=== PATIENT | male | born 1935 | race Caucasian/White ===

== ENCOUNTER 2017-07-16 20:22 | Emergency (ER) | payer MEDICARE, MEDICAID ==
[2017-07-16 20:38] VITALS: BP 159/71
[2017-07-16] MEDS ORDERED: GI Cocktail Oral Solution 30 ML PO ONE (20:41)
--- NOTE | 2017-07-16 20:43 | EDM.PDOC ---
ED HPI GENERAL MEDICAL PROBLEM - General Chief Complaint: Abdominal Pain Stated Complaint: STOMACH PAIN [id number] Time Seen by Provider: 07/16/17 20:40 Source of Information: Reports: Patient History Limitations: Reports: No Limitations - History of Present Illness INITIAL COMMENTS - FREE TEXT/NARRATIVE: 82 yo white male c/o epigastric pain X 2 days w/ diarrhea. PMHx. Heartburn, CAHD and Aortic Aneurysm Onset Date: 07/15/17 Onset Time: 12:00 Duration: Day(s): Location: Reports: Abdomen Quality: Reports: Burning, Same as Previous Episode Severity: Moderate Improves with: Reports: None Worsens with: Reports: None Context: Reports: Other (PMHx. Heartburn) Associated Symptoms: Reports: No Other Symptoms Middle Epigastric Pain Score (Numeric/FACES): 5 - Related Data Allergies Allergy/AdvReac Type Severity Reaction Status Date / Time celecoxib Allergy Difficulty Verified 07/16/17 20:38 Swallowing Home Meds: Home Meds Acetaminophen [Tylenol Extra Strength] 1 tab PO Q6HR PRN 04/25/14 [History] Aspirin [Adult Low Dose Aspirin EC] 1 tab PO DAILY 04/25/14 [History] Isosorbide Mononitrate [Isosorbide Mononitrate ER] 1 tab PO DAILY 04/25/14 [ History] Lisinopril [Prinivil] 2 tab PO DAILY 04/25/14 [History] Metoprolol Succinate [Toprol XL 100mg] 1 tab PO DAILY 04/25/14 [History] Multivitamin [Multivitamins] 1 tab PO DAILY 04/25/14 [History] Nitroglycerin [Nitrostat] 0.4 mg SL ASDIRECTED PRN 04/25/14 [History] Rosuvastatin [Crestor] 1 tab PO BEDTIME 04/25/14 [History] Clopidogrel Bisulfate [Clopidogrel] 75 mg PO DAILY 12/05/14 [History] Esomeprazole Magnesium [Nexium] 40 mg PO DAILY 12/05/14 [History] Tamsulosin HCl [Flomax] 0.4 mg PO DAILY 04/14/16 [History] Ferrous Fumarate [Ferrocite] 324 mg PO DAILY 08/05/16 [History] Finasteride 5 mg PO DAILY 08/05/16 [History] Sennosides/Docusate Sodium [Senna-Docusate Sodium] 2 tab PO BID 08/05/16 [ History] oxyCODONE HCl/Acetaminophen [Endocet 5-325 Tablet] 1 tab PO Q6H PRN 08/05/16 [ History] traMADol [Ultram] 1 tab PO Q4H PRN 08/05/16 [History] Past Medical History HEENT History: Reports: Impaired Vision, Other (See Below) Other HEENT History: wear glasses Cardiovascular History: Reports: CAD, High Cholesterol, Hypertension, [place], Stents Respiratory History: Reports: None Gastrointestinal History: Reports: Diverticulosis, Other (See Below) Other Gastrointestinal History: AAA Genitourinary History: Reports: BPH Musculoskeletal History: Reports: None Neurological History: Reports: None Psychiatric History: Reports: None Endocrine/Metabolic History: Reports: None Hematologic History: Reports: None Immunologic History: Reports: None Oncologic (Cancer) History: Reports: None Dermatologic History: Reports: None - Past Surgical History Cardiovascular Surgical History: Reports: Coronary Artery Bypass, Coronary Artery Stent Musculoskeletal Surgical History: Reports: Hip Replacement Social & Family History - Family History Cardiac: Reports: CAD, Hypertension, Stent - Tobacco Use Smoking Status *Q: Former Smoker Years of Tobacco use: 30 Used Tobacco, but Quit: No Second Hand Smoke Exposure: No - Caffeine Use Caffeine Use: Reports: Coffee, Soda - Alcohol Use Days Per Week of Alcohol Use: 7 Number of Drinks Per Day: 5 Total Drinks Per Week: 35 Date of Last Drink: 07/15/17 - Recreational Drug Use Recreational Drug Use: No - Living Situation & Occupation Living situation: Reports: , with Spouse Occupation: Retired ED ROS GENERAL - Review of Systems Review Of Systems: See Below Constitutional: Reports: No Symptoms HEENT: Reports: No Symptoms Respiratory: Reports: No Symptoms Cardiovascular: Reports: No Symptoms Endocrine: Reports: No Symptoms GI/Abdominal: Reports: Abdominal Pain (epigastric ) : Reports: No Symptoms Musculoskeletal: Reports: No Symptoms Skin: Reports: No Symptoms Neurological: Reports: No Symptoms Psychiatric: Reports: No Symptoms Hematologic/Lymphatic: Reports: No Symptoms Immunologic: Reports: No Symptoms ED EXAM, GENERAL - Physical Exam Exam: See Below Exam Limited By: No Limitations General Appearance: Alert, No Apparent Distress, Obese Eye Exam: Bilateral Eye: EOMI, PERRL Ears: Normal External Exam Nose: Normal Inspection Throat/Mouth: Normal Inspection Head: Atraumatic Neck: Normal Inspection Respiratory/Chest: No Respiratory Distress, Lungs Clear Cardiovascular: Normal Peripheral Pulses, Regular Rate, Rhythm, No JVD, No Murmur, No Rub Peripheral Pulses: 2+: Brachial (L), Brachial (R), Radial (L), Radial (R) GI/Abdominal: Normal Bowel Sounds, No Organomegaly, Tender (epigastric tenderness) Back Exam: Normal Inspection Extremities: Normal Inspection, Normal Range of Motion Neurological: Alert, Oriented, CN II-XII Intact Psychiatric: Normal Affect, Normal Mood Skin Exam: Warm, Dry, Intact, Normal Color Lymphatic: No Adenopathy Course - Vital Signs Last Recorded V/S: Last Vital Signs Temp 36.4 C 07/16/17 20:24 Pulse 90 07/16/17 20:24 Resp 15 07/16/17 20:24 BP 159/71 H 07/16/17 20:24 Pulse Ox 98 07/16/17 20:24 - Orders/Labs/Meds Orders: Active Orders 24 hr Category Date Time Status EKG Documentation Completion [RC] STAT Care 07/16/17 20:41 Active URINALYSIS W/MICROSCOPIC [UA W/MICROSCOPIC] [URIN] Stat Lab 07/16/17 20:43 Uncollected Sodium Chloride 0.9% [Normal Saline] 500 ml Med 07/16/17 20:45 Active IV ASDIRECTED Medication Orders Sodium Chloride (Normal Saline) 500 mls @ 100 mls/hr IV ASDIRECTED RODRIGO Last Admin: 07/16/17 21:04 Dose: 100 mls/hr Labs: Laboratory Tests 07/16/17 07/16/17 07/16/17 Range/Units 20:45 20:45 20:45 WBC 8.4 (5.0-10.0) 10^3/uL RBC 3.59 L (4.6-6.2) 10^6/uL Hgb 11.2 L (14.0-18.0) g/dL Hct 34.5 L (40.0-54.0) % MCV 96.1 (80-100) fL MCH 31.2 (27.0-34.0) pg MCHC 32.5 L (33.0-35.0) g/dL Plt Count 205 (150-450) 10^3/uL Neut % (Auto) 63.2 (42.2-75.2) % Lymph % (Auto) 25.1 (20.5-50.1) % [place] % (Auto) 9.7 H (2-8) % Eos % (Auto) 1.8 (1.0-3.0) % Baso % (Auto) 0.2 (0.0-1.0) % D-Dimer, Quantitative 839 H (0-400) ng/mL Sodium 139 (135-145) mmol/L Potassium 4.7 (3.6-5.0) mmol/L Chloride 103 (101-111) mmol/L Carbon Dioxide 25.0 (21.0-31.0) mmol/L Anion Gap 15.7 BUN 30 H (7-18) mg/dL Creatinine 1.6 H (0.6-1.3) mg/dL Est Cr Clr Drug Dosing 33.28 mL/min Estimated GFR (MDRD) 42 BUN/Creatinine Ratio 18.75 Glucose 106 H (74-105) mg/dL Calcium 9.5 (8.4-10.2) mg/dl Total Bilirubin 0.5 (0.2-1.0) mg/dL AST 25 (10-42) IU/L ALT 20 (10-60) IU/L Alkaline Phosphatase 50 (42-121) IU/L Troponin I 0.05 H* (0.00-0.02) ng/ml Total Protein 7.3 (6.7-8.2) g/dl Albumin 4.0 (3.2-5.5) g/dl Globulin 3.3 Albumin/Globulin Ratio 1.21 Meds: Medications Generic Name Dose Route Start Last Admin Trade Name Freq PRN Reason Stop Dose Admin Sodium Chloride 500 mls @ 100 mls/hr 07/16/17 20:45 07/16/17 21:04 Normal Saline IV 100 mls/hr ASDIRECTED RODRIGO Administration Discontinued Medications Generic Name Dose Route Start Last Admin Trade Name Freq PRN Reason Stop Dose Admin Al Hydroxide/Mg Hydroxide 30 ml 07/16/17 20:41 07/16/17 21:03 Gi Cocktail PO 07/16/17 20:42 30 ml ONETIME ONE Administration Aspirin 324 mg 07/16/17 21:22 Aspirin PO 07/16/17 21:23 ONETIME ONE Morphine Sulfate 2 mg 07/16/17 21:21 Morphine IVPUSH 07/16/17 21:22 ONETIME ONE Departure - Departure Time of Disposition: 21:30 Disposition: DC/Tfer to Acute Hospital 02 Condition: Fair Clinical Impression: NSTEMI (non-ST elevated myocardial infarction) - Discharge Information Forms: ED Department Discharge, Interfacility Transfer KALYAN - My Orders Last 24 Hours: My Active Orders 07/16/17 20:41 EKG Documentation Completion [RC] STAT 07/16/17 20:43 URINALYSIS W/MICROSCOPIC [UA W/MICROSCOPIC] [URIN] Stat 07/16/17 20:45 Sodium Chloride 0.9% [Normal Saline] 500 ml IV ASDIRECTED - Assessment/Plan Last 24 Hours: My Active Orders 07/16/17 20:41 EKG Documentation Completion [RC] STAT 07/16/17 20:43 URINALYSIS W/MICROSCOPIC [UA W/MICROSCOPIC] [URIN] Stat 07/16/17 20:45 Sodium Chloride 0.9% [Normal Saline] 500 ml IV ASDIRECTED
[2017-07-16] MEDS ORDERED: Sodium Chloride 0.9% 500 ML IV SCH (20:45)
[2017-07-16] MEDS ORDERED: Morphine 2 MG/ML Syringe IVPUSH ONE (21:21)
[2017-07-16] MEDS ORDERED: Aspirin 81 MG Tab.Chew PO ONE (21:22)
--- NOTE | 2017-07-20 08:29 | EKG ---
07/16/2017- ANANYA SIMPSON - Twelve-lead EKG shows normal sinus rhythm with borderline left axis deviation. Nonspecific ST-T wave changes noted on lead V2, V3, and also 3. No significant ST elevation or ST depression noted on this 12-lead EKG. [facility] /[id number]
== END 2017-07-16 21:59 ==
LOC: DL.ED 20:22
DX: I21.4 Non-ST elevation (NSTEMI) myocardial infarction (principal); N28.9 Disorder of kidney and ureter, unspecified; R79.89 Other specified abnormal findings of blood chemistry; I10 Essential (primary) hypertension; I25.10 Atherosclerotic heart disease of native coronary artery without angina pectoris; Z79.82 Long term (current) use of aspirin; Z79.899 Other long term (current) drug therapy; Z87.891 Personal history of nicotine dependence; Z88.8 Allergy status to other drugs, medicaments and biological substances
CPT/HCPCS: 36415; 71010; 80053; 84484; 85025; 85379; 93005; 93010; 96361; 96374; 99285; A9270; J2270; J7040

== ENCOUNTER 2017-09-07 18:12 | Emergency (ER) | payer MEDICARE, MEDICAID ==
[2017-09-07] MEDS ORDERED: Sodium Chloride 0.9% 10 ML Syringe FLUSH PRN (18:23)
--- NOTE | 2017-09-07 18:45 | EDM.PDOC ---
Scribed by Kayla Botello 09/07/17 0075 for Abel Quintana MD ED HPI GENERAL MEDICAL PROBLEM - General Source of Information: Reports: Patient, EMS, EMS Notes Reviewed, RN, RN Notes Reviewed History Limitations: Reports: No Limitations - History of Present Illness Onset: Today Quality: Reports: Ache Severity: Moderate Improves with: Reports: None Worsens with: Reports: None Associated Symptoms: Reports: No Other Symptoms <Abel Quintana - Last Filed: 09/07/17 18:44> <Kong Almaraz - Last Filed: 09/07/17 19:48> - General Chief Complaint: Syncope Stated Complaint: BY AMBULANCE Time Seen by Provider: 09/07/17 18:16 - History of Present Illness INITIAL COMMENTS - FREE TEXT/NARRATIVE: Patient arrives from home by ambulance with complaints of syncope. Patient states he felt well and normal all day and had just eaten dinner when he experienced sudden onset of spinning dizziness,then he forcefully vomited up his dinner and briefly fainted for a second or two. Patient states that as soon as he "came too" he felt completely normal again. Denies chestpain, shortness of breath, headache, nausea, fever, chills, cough, abdominal pain, or palpitations. Admits that when he became dizzy his vision briefly blurred. ( Kayla Botello) Patient arrives from home by ambulance with complaints of syncope. Patient states he felt well and normal all day and had just eaten dinner when he experienced sudden onset of spinning dizziness,then he forcefully vomited up his dinner and briefly fainted for a second or two. Patient states that as soon as he "came too" he felt completely normal again. Denies chestpain, shortness of breath, headache, nausea, fever, chills, cough, abdominal pain, or palpitations. Admits that when he became dizzy his vision briefly blurred. Pt's states he had slurred speech and couldn't get his words out for a few minutes just before the episode. (Abel Quintana) - Related Data Allergies Allergy/AdvReac Type Severity Reaction Status Date / Time celecoxib Allergy Difficulty Verified 09/07/17 18:48 Swallowing Home Meds: Home Meds Acetaminophen [Tylenol Extra Strength] 1 tab PO Q6HR PRN 04/25/14 [History] Aspirin [Adult Low Dose Aspirin EC] 1 tab PO DAILY 04/25/14 [History] Isosorbide Mononitrate [Isosorbide Mononitrate ER] 1 tab PO DAILY 04/25/14 [ History] Lisinopril [Prinivil] 2 tab PO DAILY 04/25/14 [History] Metoprolol Succinate [Toprol XL 100mg] 1 tab PO DAILY 04/25/14 [History] Multivitamin [Multivitamins] 1 tab PO DAILY 04/25/14 [History] Nitroglycerin [Nitrostat] 0.4 mg SL ASDIRECTED PRN 04/25/14 [History] Rosuvastatin [Crestor] 1 tab PO BEDTIME 04/25/14 [History] Clopidogrel Bisulfate [Clopidogrel] 75 mg PO DAILY 12/05/14 [History] Esomeprazole Magnesium [Nexium] 40 mg PO DAILY 12/05/14 [History] Tamsulosin HCl [Flomax] 0.4 mg PO DAILY 04/14/16 [History] Ferrous Fumarate [Ferrocite] 324 mg PO DAILY 08/05/16 [History] Finasteride 5 mg PO DAILY 08/05/16 [History] Sennosides/Docusate Sodium [Senna-Docusate Sodium] 2 tab PO BID 08/05/16 [ History] oxyCODONE HCl/Acetaminophen [Endocet 5-325 Tablet] 1 tab PO Q6H PRN 08/05/16 [ History] traMADol [Ultram] 1 tab PO Q4H PRN 08/05/16 [History] Past Medical History HEENT History: Reports: Impaired Vision, Other (See Below) Other HEENT History: wear glasses Cardiovascular History: Reports: CAD, High Cholesterol, Hypertension, [place], Stents Respiratory History: Reports: None Gastrointestinal History: Reports: Diverticulosis, Other (See Below) Other Gastrointestinal History: AAA Genitourinary History: Reports: BPH Musculoskeletal History: Reports: None Neurological History: Reports: None Psychiatric History: Reports: None Endocrine/Metabolic History: Reports: None Hematologic History: Reports: None Immunologic History: Reports: None Oncologic (Cancer) History: Reports: None Dermatologic History: Reports: None - Past Surgical History Cardiovascular Surgical History: Reports: Coronary Artery Bypass, Coronary Artery Stent Musculoskeletal Surgical History: Reports: Hip Replacement <Abel Quintana - Last Filed: 09/07/17 18:44> Social & Family History - Family History Cardiac: Reports: CAD, Hypertension, Stent - Tobacco Use Smoking Status *Q: Former Smoker Years of Tobacco use: 30 Used Tobacco, but Quit: No Second Hand Smoke Exposure: No - Caffeine Use Caffeine Use: Reports: Coffee, Soda - Alcohol Use Days Per Week of Alcohol Use: 7 Number of Drinks Per Day: 5 Total Drinks Per Week: 35 - Recreational Drug Use Recreational Drug Use: No - Living Situation & Occupation Living situation: Reports: , with Spouse Occupation: Retired <Abel Quintana - Last Filed: 09/07/17 18:44> ED ROS GENERAL - Review of Systems Review Of Systems: ROS reveals no pertinent complaints other than HPI. <Abel Quintana - Last Filed: 09/07/17 18:44> - Physical Exam Exam: See Below Exam Limited By: No Limitations General Appearance: Alert, WD/WN, No Apparent Distress Eye Exam: Bilateral Eye: Other (reproducible lateral gaze nystagmus.) Head Exam: Atraumatic, Normocephalic Neck: Normal Inspection, Supple, Non-Tender, Full Range of Motion Respiratory/Chest: No Respiratory Distress, Lungs Clear, Normal Breath Sounds, No Accessory Muscle Use, Chest Non-Tender Cardiovascular: Normal Peripheral Pulses, Regular Rate, Rhythm, No Edema, No Gallop, No JVD, No Murmur, No Rub GI/Abdominal: Normal Bowel Sounds, Soft, Non-Tender, No Organomegaly, No Distention, No Abnormal Bruit, No Mass (Male) Exam: Deferred Rectal (Males) Exam: Deferred Neuro Exam (Abbreviated): Alert, Oriented, CN II-XII Intact, Normal Cognition, Normal Gait, Normal Reflexes, No Motor/Sensory Deficits Back Exam: Normal Inspection, Full Range of Motion, NT Extremities: Normal Inspection, Normal Range of Motion, Non-Tender, No Pedal Edema, Normal Capillary Refill Psychiatric: Normal Affect, Normal Mood Skin Exam: Warm, Dry, Intact, Normal Color, No Rash <Abel Quintana - Last Filed: 09/07/17 18:44> EKG INTERPRETATION EKG Date: 09/07/17 Time: 18:22 Rhythm: Other (sinus rhythm) Rate (Beats/Min): 67 [place]: Normal P-Wave: Present QRS: Other (old inferior Q waves) ST-T: Normal QT: Normal <Abel Quintana - Last Filed: 09/07/17 18:44> Course <Abel Quintana Arthur - Last Filed: 09/07/17 18:44> <Kong Almaraz - Last Filed: 09/07/17 19:48> - Vital Signs Last Recorded V/S: Last Vital Signs Temp 35.7 C 09/07/17 18:15 Pulse 67 09/07/17 18:15 Resp 14 09/07/17 18:15 BP 136/62 09/07/17 18:15 Pulse Ox 96 09/07/17 18:15 Orthostatic Blood Pressure [ 105/56 Standing] Orthostatic Blood Pressure [ 120/57 Sitting] Orthostatic Blood Pressure [ 117/55 Supine] - Orders/Labs/Meds Orders: Active Orders 24 hr Category Date Time Status Blood Glucose Check, Bedside [RC] ONETIME Care 09/07/17 18:23 Active EKG 12 Lead [EKG Documentation Completion] [RC] STAT Care 09/07/17 18:22 Active Orthostatic Vital Signs [RC] ASDIRECTED Care 09/07/17 18:22 Active Peripheral IV Care [RC] . DIRECTED Care 09/07/17 18:23 Active CK W CKMB [CHEM] Stat Lab 09/07/17 18:40 Results DRUG SCREEN URINE BIORAD [URCHEM] Stat Lab 09/07/17 19:08 Received INR,PT,PROTHROMBIN TIME [COAG] Stat Lab 09/07/17 18:40 Received PTT,PARTIAL THROMBOPLSTIN TIME [COAG] Stat Lab 09/07/17 18:40 Received UA W/MICROSCOPIC [URIN] Stat Lab 09/07/17 19:08 Received Sodium Chloride 0.9% [Saline Flush] Med 09/07/17 18:23 Active 10 ml FLUSH ASDIRECTED PRN Peripheral IV Insertion Adult [OM.PC] Stat Oth 09/07/17 18:22 Ordered Medication Orders Sodium Chloride (Saline Flush) 10 ml FLUSH ASDIRECTED PRN PRN Reason: Keep Vein Open Labs: Laboratory Tests 09/07/17 09/07/17 09/07/17 Range/Units 18:40 18:40 18:40 WBC 14.4 H (5.0-10.0) 10^3/uL RBC 3.96 L (4.6-6.2) 10^6/uL Hgb 12.3 L (14.0-18.0) g/dL Hct 38.1 L (40.0-54.0) % MCV 96.2 (80-100) fL MCH 31.1 (27.0-34.0) pg MCHC 32.3 L (33.0-35.0) g/dL Plt Count 229 (150-450) 10^3/uL Neut % (Auto) 72.0 (42.2-75.2) % Lymph % (Auto) 19.0 L (20.5-50.1) % [place]flower % (Auto) 7.4 (2-8) % Eos % (Auto) 1.5 (1.0-3.0) % Baso % (Auto) 0.1 (0.0-1.0) % D-Dimer, Quantitative 1040 H (0-400) ng/mL Sodium 141 (135-145) mmol/L Potassium 4.3 (3.6-5.0) mmol/L Chloride 106 (101-111) mmol/L Carbon Dioxide 23.0 (21.0-31.0) mmol/L Anion Gap 16.3 BUN 36 H (7-18) mg/dL Creatinine 1.4 H (0.6-1.3) mg/dL Est Cr Clr Drug Dosing TNP Estimated GFR (MDRD) 49 BUN/Creatinine Ratio 25.71 Glucose 126 H (74-105) mg/dL Calcium 8.9 (8.4-10.2) mg/dl Magnesium 2.1 (1.8-2.5) mg/dL Total Bilirubin 0.5 (0.2-1.0) mg/dL AST 27 (10-42) IU/L ALT 20 (10-60) IU/L Alkaline Phosphatase 46 (42-121) IU/L CK-MB (CK-2) (0.4-4.7) ng/mL Troponin I 0.03 H* (0.00-0.02) ng/ml B-Natriuretic Peptide 137 H (0-100) pg/ml Total Protein 7.8 (6.7-8.2) g/dl Albumin 4.5 (3.2-5.5) g/dl Globulin 3.3 Albumin/Globulin Ratio 1.36 Amylase 107 H (28-100) U/L Lipase 31 (22-51) U/L Ethyl Alcohol < 5 mg/dL 09/07/17 Range/Units 18:40 WBC (5.0-10.0) 10^3/uL RBC (4.6-6.2) 10^6/uL Hgb (14.0-18.0) g/dL Hct (40.0-54.0) % MCV (80-100) fL MCH (27.0-34.0) pg MCHC (33.0-35.0) g/dL Plt Count (150-450) 10^3/uL Neut % (Auto) (42.2-75.2) % Lymph % (Auto) (20.5-50.1) % Sunflower % (Auto) (2-8) % Eos % (Auto) (1.0-3.0) % Baso % (Auto) (0.0-1.0) % D-Dimer, Quantitative (0-400) ng/mL Sodium (135-145) mmol/L Potassium (3.6-5.0) mmol/L Chloride (101-111) mmol/L Carbon Dioxide (21.0-31.0) mmol/L Anion Gap BUN (7-18) mg/dL Creatinine (0.6-1.3) mg/dL Est Cr Clr Drug Dosing Estimated GFR (MDRD) BUN/Creatinine Ratio Glucose (74-105) mg/dL Calcium (8.4-10.2) mg/dl Magnesium (1.8-2.5) mg/dL Total Bilirubin (0.2-1.0) mg/dL AST (10-42) IU/L ALT (10-60) IU/L Alkaline Phosphatase (42-121) IU/L CK-MB (CK-2) 6.30 H (0.4-4.7) ng/mL Troponin I (0.00-0.02) ng/ml B-Natriuretic Peptide (0-100) pg/ml Total Protein (6.7-8.2) g/dl Albumin (3.2-5.5) g/dl Globulin Albumin/Globulin Ratio Amylase (28-100) U/L Lipase (22-51) U/L Ethyl Alcohol mg/dL Meds: Medications Generic Name Dose Route Start Last Admin Trade Name Miahq PRN Reason Stop Dose Admin Sodium Chloride 10 ml 09/07/17 18:23 Saline Flush FLUSH ASDIRECTED PRN Keep Vein Open - Re-Assessments/Exams Free Text/Narrative Re-Assessment/Exam: 09/07/17 18:39 Care of patient transferred to Dr. Almaraz at 1900 hours shift change. (Kayla Botello) 09/07/17 18:39 Care of patient transferred to Dr. Almaraz at 1900 hours shift change. (Abel Quintana) 09/07/17 19:45 results discussed with pt & family. case discussed with Dr Mirza @ who kindly accepted pt. (Kong Almaraz) Departure <Abel Quintana - Last Filed: 09/07/17 18:44> - Departure Time of Disposition: 19:45 <Kong Almaraz - Last Filed: 09/07/17 19:48> - Departure Disposition: DC/Tfer to [facility] 02 Clinical Impression: Elevated troponin I level, Elevated d-dimer, Renal insufficiency Syncope Qualifiers: Syncope type: unspecified Qualified Code(s): R55 - Syncope and collapse - Discharge Information Forms: Interfacility Transfer EMTALA I have read and agree with the documentation that has been completed regarding this visit. By signing this record, I attest that the documentation was completed in my physical presence and is an accurate record of the encounter.
[2017-09-07 19:11] LABS: CHLORIDE,CL 106 mmol/L (101-111); SODIUM,NA 141 mmol/L (135-145)
[2017-09-07 19:50] VITALS: BP 119/52
--- NOTE | 2017-09-14 18:31 | EKG ---
09/07/2017 - ANANYA SIMPSON - FINDINGS: This 12-lead EKG shows a normal sinus rhythm with a ventricular rate of 67. Normal axis. No acute ST-T wave changes. There are Q-waves seen in the inferior leads, representing possible age-indeterminate inferior infarction. There is poor R-wave progression. [facility] /[id number]
== END 2017-09-07 20:45 ==
LOC: DL.ED 18:12
DX: R55 Syncope and collapse (principal); N28.9 Disorder of kidney and ureter, unspecified; R79.89 Other specified abnormal findings of blood chemistry; E78.00 Pure hypercholesterolemia, unspecified; I10 Essential (primary) hypertension; Z88.8 Allergy status to other drugs, medicaments and biological substances; Z79.82 Long term (current) use of aspirin; Z79.899 Other long term (current) drug therapy; Z87.891 Personal history of nicotine dependence
CPT/HCPCS: 36415; 70450; 71010; 80053; 80305; 81001; 82150; 82550; 82553; 82962; 83690; 83735; 83880; 84484; 85025; 85379; 85610; 85730; 93005; 93010; 99285; G0480; 99283

== ENCOUNTER 2017-12-23 10:44 | Emergency (ER) | payer MEDICARE, MEDICAID ==
[2017-12-23] MEDS ORDERED: Ondansetron 4 MG Tab.DIS PO ONE (11:20)
--- NOTE | 2017-12-23 11:23 | EDM.PDOC ---
ED HPI GENERAL MEDICAL PROBLEM - General Stated Complaint: LIGHT HEADED NAUSEA [id number] Time Seen by Provider: 12/23/17 11:00 Source of Information: Reports: Patient, Old Records, RN, RN Notes Reviewed History Limitations: Reports: No Limitations - History of Present Illness INITIAL COMMENTS - FREE TEXT/NARRATIVE: Richard is a 82 yo M who presents to the ER due to feeling lightheaded and having nausea. He related that he has had this off and on for the last several months but his symptoms have gotten worse over the last 2 days. He reports that he had headaches off and on to the front of his head. He reports that he gets these headaches several times throughout the day. He has been taking Tylenol with relief in his headaches. Reports photophobia with his headaches. He reports that his dizziness seems to worsen with position changes. Lightheadedness does not feel like the room is spinning. He reports that he has an extensive work-up with neurology due to his dizziness, but is unsure of the results of his tests. Onset: Gradual (Over the last several months worse over the last 2 days.) Location: Reports: Head, Generalized Severity: Moderate Improves with: Reports: Rest Worsens with: Reports: Movement Associated Symptoms: Reports: Headaches - Related Data Allergies Allergy/AdvReac Type Severity Reaction Status Date / Time celecoxib Allergy Difficulty Verified 09/07/17 18:48 Swallowing Home Meds: Home Meds Acetaminophen [Tylenol Extra Strength] 1 tab PO Q6HR PRN 04/25/14 [History] Aspirin [Adult Low Dose Aspirin EC] 1 tab PO DAILY 04/25/14 [History] Isosorbide Mononitrate [Isosorbide Mononitrate ER] 1 tab PO DAILY 04/25/14 [ History] Metoprolol Succinate [Toprol XL 100mg] 50 mg PO DAILY 04/25/14 [History] Multivitamin [Multivitamins] 1 tab PO DAILY 04/25/14 [History] Nitroglycerin [Nitrostat] 0.4 mg SL ASDIRECTED PRN 04/25/14 [History] Rosuvastatin [Crestor] 1 tab PO BEDTIME 04/25/14 [History] Clopidogrel Bisulfate [Clopidogrel] 75 mg PO DAILY 12/05/14 [History] Esomeprazole Magnesium [Nexium] 40 mg PO DAILY 12/05/14 [History] Tamsulosin HCl [Flomax] 0.4 mg PO DAILY 04/14/16 [History] Ferrous Fumarate [Ferrocite] 324 mg PO DAILY 08/05/16 [History] Finasteride 5 mg PO DAILY 08/05/16 [History] Sennosides/Docusate Sodium [Senna-Docusate Sodium] 2 tab PO BID 08/05/16 [ History] Past Medical History HEENT History: Reports: Impaired Vision, Other (See Below) Other HEENT History: wear glasses Cardiovascular History: Reports: CAD, High Cholesterol, Hypertension, [place], Stents Respiratory History: Reports: None Gastrointestinal History: Reports: Diverticulosis, Other (See Below) Other Gastrointestinal History: AAA Genitourinary History: Reports: BPH Musculoskeletal History: Reports: None Neurological History: Reports: None Psychiatric History: Reports: None Endocrine/Metabolic History: Reports: None Hematologic History: Reports: None Immunologic History: Reports: None Oncologic (Cancer) History: Reports: None Dermatologic History: Reports: None - Past Surgical History Cardiovascular Surgical History: Reports: Coronary Artery Bypass, Coronary Artery Stent Musculoskeletal Surgical History: Reports: Hip Replacement Social & Family History - Family History Cardiac: Reports: CAD, Hypertension, Stent - Tobacco Use Smoking Status *Q: Former Smoker Years of Tobacco use: 30 Used Tobacco, but Quit: No Second Hand Smoke Exposure: No - Caffeine Use Caffeine Use: Reports: Coffee, Soda - Alcohol Use Days Per Week of Alcohol Use: 7 Number of Drinks Per Day: 5 Total Drinks Per Week: 35 - Recreational Drug Use Recreational Drug Use: No - Living Situation & Occupation Living situation: Reports: , with Spouse Occupation: Retired ED ROS GENERAL - Review of Systems Review Of Systems: ROS reveals no pertinent complaints other than HPI. ED EXAM, DIZZINESS - Physical Exam Exam: See Below Exam Limited By: No Limitations General Appearance: Alert, WD/WN, No Apparent Distress Eye Exam: Bilateral Eye: PERRL Ears: Normal External Exam, Normal Canal, Hearing Grossly Normal, Normal TMs Nose: Normal Inspection, Normal Mucosa, No Blood Throat/Mouth: Normal Inspection, Normal Lips, Normal Teeth, Normal Gums, Normal Oropharynx, Normal Voice, No Airway Compromise Head Exam: Atraumatic, Normocephalic Neck: Normal Inspection, Supple, Non-Tender, Full Range of Motion Respiratory/Chest: No Respiratory Distress, Lungs Clear, Normal Breath Sounds, No Accessory Muscle Use, Chest Non-Tender Cardiovascular: Normal Peripheral Pulses, Regular Rate, Rhythm, No Edema, No Gallop, No JVD, No Murmur, No Rub GI/Abdominal: Normal Bowel Sounds, Soft, Non-Tender, No Organomegaly, No Distention, No Abnormal Bruit, No Mass (Male) Exam: Deferred Rectal (Males) Exam: Deferred Neurological: Alert, Normal Mood/Affect, CN II-XII Intact, Normal Gait, No Motor /Sensory Deficits, Oriented x 3 Back Exam: Normal Inspection, Full Range of Motion, NT Extremities: Normal Inspection, Normal Range of Motion, Non-Tender, No Pedal Edema, Normal Capillary Refill Psychiatric: Normal Affect, Normal Mood Skin Exam: Warm, Dry, Intact, Normal Color, No Rash Course - Vital Signs Last Recorded V/S: Last Vital Signs Temp 37.1 C 12/23/17 11:43 Pulse 71 12/23/17 11:43 Resp 16 12/23/17 11:43 BP 152/68 H 12/23/17 11:43 Pulse Ox 97 12/23/17 11:43 - Orders/Labs/Meds Orders: Active Orders 24 hr Category Date Time Status EKG 12 Lead [EKG Documentation Completion] [RC] STAT Care 12/23/17 11:19 Active Labs: Laboratory Tests 12/23/17 12/23/17 12/23/17 Range/Units 11:34 11:34 11:34 WBC 7.2 (5.0-10.0) 10^3/uL RBC 3.78 L (4.6-6.2) 10^6/uL Hgb 11.7 L (14.0-18.0) g/dL Hct 35.7 L (40.0-54.0) % MCV 94.4 (80-100) fL MCH 31.0 (27.0-34.0) pg MCHC 32.8 L (33.0-35.0) g/dL Plt Count 203 (150-450) 10^3/uL Neut % (Auto) 69.7 (42.2-75.2) % Lymph % (Auto) 20.3 L (20.5-50.1) % [place] % (Auto) 8.2 H (2-8) % Eos % (Auto) 1.5 (1.0-3.0) % Baso % (Auto) 0.3 (0.0-1.0) % Sodium 136 (135-145) mmol/L Potassium 3.8 (3.6-5.0) mmol/L Chloride 105 (101-111) mmol/L Carbon Dioxide 24.0 (21.0-31.0) mmol/L Anion Gap 10.8 BUN 26 H (7-18) mg/dL Creatinine 1.3 (0.6-1.3) mg/dL Est Cr Clr Drug Dosing 42.38 mL/min Estimated GFR (MDRD) 53 BUN/Creatinine Ratio 20.00 Glucose 143 H (74-105) mg/dL Calcium 8.4 (8.4-10.2) mg/dl Total Bilirubin 0.5 (0.2-1.0) mg/dL AST 18 (10-42) IU/L ALT 14 (10-60) IU/L Alkaline Phosphatase 49 (42-121) IU/L Troponin I 0.03 H* (0.00-0.02) ng/ml C-Reactive Protein 1.9 H (0.0-1.3) mg/dL Total Protein 6.6 L (6.7-8.2) g/dl Albumin 3.6 (3.2-5.5) g/dl Globulin 3.0 Albumin/Globulin Ratio 1.20 Meds: Medications Discontinued Medications Generic Name Dose Route Start Last Admin Trade Name Miahq PRN Reason Stop Dose Admin Ondansetron HCl 8 mg 12/23/17 11:20 12/23/17 11:34 Zofran Odt PO 12/23/17 11:21 8 mg ONETIME ONE Administration Departure - Departure Time of Disposition: 12:20 Disposition: Home, Self-Care 01 Condition: Fair Clinical Impression: Dizziness - Discharge Information Instructions: Dizziness, [id number] Forms: ED Department Discharge Care Plan Goals: Push fluids. Zofran as needed for nausea 1 tablet every 6 hours as needed #20. Follow-up with your primary care provider regarding your dizziness - My Orders Last 24 Hours: My Active Orders 12/23/17 11:19 EKG 12 Lead [EKG Documentation Completion] [RC] STAT - Assessment/Plan Last 24 Hours: My Active Orders 12/23/17 11:19 EKG 12 Lead [EKG Documentation Completion] [RC] STAT
[2017-12-23 11:49] VITALS: BP 152/68
--- NOTE | 2017-12-23 20:20 | EKG ---
12/23/2017 - ANANYA SIMPSON - TIME: 11:11 a.m. As per my reading, sinus rhythm at 69. [facility] /[id number]
== END 2017-12-23 12:32 | disposition home or self-care (01) ==
LOC: DL.ED 10:44
DX: R42 Dizziness and giddiness (principal); E78.00 Pure hypercholesterolemia, unspecified; I10 Essential (primary) hypertension; I25.2 Old myocardial infarction; Z88.8 Allergy status to other drugs, medicaments and biological substances; Z79.82 Long term (current) use of aspirin; Z79.899 Other long term (current) drug therapy; Z87.891 Personal history of nicotine dependence
CPT/HCPCS: 36415; 80053; 84484; 85025; 86140; 93005; 93010; 99283; 99284; A9270-GY

== ENCOUNTER 2018-03-14 12:39 | Emergency (ER) | payer MEDICARE, MEDICAID ==
[2018-03-14 13:09] VITALS: BP 144/81
--- NOTE | 2018-03-14 14:26 | EDM.PDOC ---
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 Pt reports he had hernia repair surgery a week ago, and yesterday his urine stream grew less and less, until now he feels his bladder is full and painful and he can only dribble urine. Pt denies fever or chills. Onset: Gradual Onset Date: 03/13/18 Duration: Constant, Getting Worse Location: Reports: Abdomen Quality: Reports: Pressure Severity: Severe Improves with: Reports: None Worsens with: Reports: None Associated Symptoms: Reports: No Other Symptoms Groin Pain Score (Numeric/FACES): 7 - Related Data Allergies Allergy/AdvReac Type Severity Reaction Status Date / Time celecoxib Allergy Difficulty Verified 03/14/18 13:09 Swallowing Home Meds: Home Meds Acetaminophen [Tylenol Extra Strength] 1 tab PO Q6HR PRN 04/25/14 [History] Aspirin [Adult Low Dose Aspirin EC] 1 tab PO DAILY 04/25/14 [History] Isosorbide Mononitrate [Isosorbide Mononitrate ER] 1 tab PO DAILY 04/25/14 [ History] Metoprolol Succinate [Toprol XL 100mg] 50 mg PO DAILY 04/25/14 [History] Multivitamin [Multivitamins] 1 tab PO DAILY 04/25/14 [History] Nitroglycerin [Nitrostat] 0.4 mg SL ASDIRECTED PRN 04/25/14 [History] Rosuvastatin [Crestor] 1 tab PO BEDTIME 04/25/14 [History] Clopidogrel Bisulfate [Clopidogrel] 75 mg PO DAILY 12/05/14 [History] Esomeprazole Magnesium [Nexium] 40 mg PO DAILY 12/05/14 [History] Tamsulosin HCl [Flomax] 0.4 mg PO DAILY 04/14/16 [History] Ferrous Fumarate [Ferrocite] 324 mg PO BID 08/05/16 [History] Finasteride 5 mg PO DAILY 08/05/16 [History] Sennosides/Docusate Sodium [Senna-Docusate Sodium] 1 tab PO BID 08/05/16 [ History] Past Medical History HEENT History: Reports: Impaired Vision, Other (See Below) Other HEENT History: wear glasses Cardiovascular History: Reports: CAD, High Cholesterol, Hypertension, [place], Stents Respiratory History: Reports: None Gastrointestinal History: Reports: Diverticulosis, Other (See Below) Other Gastrointestinal History: AAA Genitourinary History: Reports: BPH Musculoskeletal History: Reports: None Neurological History: Reports: None Psychiatric History: Reports: None Endocrine/Metabolic History: Reports: None Hematologic History: Reports: None Immunologic History: Reports: None Oncologic (Cancer) History: Reports: None Dermatologic History: Reports: None - Infectious Disease History Infectious Disease History: Reports: Chicken Pox, Measles, Mumps - Past Surgical History Head Surgeries/Procedures: Reports: None Cardiovascular Surgical History: Reports: Coronary Artery Bypass, Coronary Artery Stent GI Surgical History: Reports: Hernia Repair/Other Other GI Surgeries/Procedures: last thursdayFebruary 2018 Musculoskeletal Surgical History: Reports: Hip Replacement Social & Family History - Family History Cardiac: Reports: CAD, Hypertension, Stent - Tobacco Use Smoking Status *Q: Never Smoker Second Hand Smoke Exposure: No - Caffeine Use Caffeine Use: Reports: Coffee - Recreational Drug Use Recreational Drug Use: No - Living Situation & Occupation Living situation: Reports: , with Spouse Occupation: Retired ED ROS GENERAL - Review of Systems Review Of Systems: ROS reveals no pertinent complaints other than HPI. ED EXAM, RENAL/ - Physical Exam Exam: See Below Exam Limited By: No Limitations General Appearance: Alert, WD/WN, No Apparent Distress, Other (uncomfortable, but non-toxic appearing) Throat/Mouth: Normal Inspection, Normal Voice, No Airway Compromise Respiratory/Chest: No Respiratory Distress, Lungs Clear Cardiovascular: Regular Rate, Rhythm GI/Abdominal: Normal Bowel Sounds, Soft, Tender (suprapubic mildlly tender, with palpable bladder distention). No: Guarding, Rigid, Rebound (Male) Exam: Normal Inspection Rectal (Males) Exam: Deferred Back Exam: Normal Inspection. No: CVA Tenderness (L), CVA Tenderness (R) Extremities: Normal Inspection Neurological: Alert, Oriented, No Motor/Sensory Deficits Psychiatric: Normal Affect, Normal Mood Skin Exam: Warm, Dry, Intact, Normal Color, No Rash Course - Vital Signs Last Recorded V/S: Last Vital Signs Temp 37.1 C 03/14/18 13:04 Pulse 88 03/14/18 13:04 Resp 18 03/14/18 13:04 BP 144/81 H 03/14/18 13:04 Pulse Ox 97 03/14/18 13:04 - Orders/Labs/Meds Orders: Active Orders 24 hr Category Date Time Status Insert Hilton Catheter [Insert Urinary Catheter] [OM.PC] Care 03/14/18 13:24 Ordered Stat Urinary Catheter Assessment [RC] ASDIRECTED Care 03/14/18 13:24 Active Labs: Laboratory Tests 03/14/18 Range/Units 13:30 Urine Color Yellow (YELLOW) Urine Appearance Clear (CLEAR) Urine pH 5.5 (5.0-9.0) Ur Specific [place] <= 1.005 (1.005-1.030) Urine Protein Negative (NEGATIVE) Urine Glucose (UA) Negative (NEGATIVE) Urine Ketones Negative (NEGATIVE) Urine Occult Blood Negative (NEGATIVE) Urine Nitrite Negative (NEGATIVE) Urine Bilirubin Negative (NEGATIVE) Urine Urobilinogen 0.2 (0.2-1.0) mg/dL Ur Leukocyte Esterase Negative (NEGATIVE) Urine RBC 0-5 /HPF Urine WBC 0-5 (0-5/HPF) /HPF Ur Epithelial Cells Rare /HPF Amorphous Sediment Rare (0/HPF) /HPF Urine Bacteria Rare (0-FEW/HPF) /HPF - Re-Assessments/Exams Free Text/Narrative Re-Assessment/Exam: 03/14/18 Hilton catheter placed, and self care instructions given to pt by RN. Departure - Departure Time of Disposition: 14:03 Disposition: Home, Self-Care 01 Condition: Good Clinical Impression: Acute urinary retention - Discharge Information Instructions: Indwelling Urinary Catheter Insertion, Care After, Acute Urinary Retention, Male, [id number] Forms: ED Department Discharge Additional Instructions: Call your primary doctor tomorrow for catheter removal and recheck. - My Orders Last 24 Hours: My Active Orders 03/14/18 13:24 Insert Hilton Catheter [Insert Urinary Catheter] [OM.PC] Stat Urinary Catheter Assessment [RC] ASDIRECTED - Assessment/Plan Last 24 Hours: My Active Orders 03/14/18 13:24 Insert Hilton Catheter [Insert Urinary Catheter] [OM.PC] Stat Urinary Catheter Assessment [RC] ASDIRECTED I have read and agree with the documentation that has been completed regarding this visit. By signing this record, I attest that the documentation was completed in my physical presence and is an accurate record of the encounter.
== END 2018-03-14 14:09 | disposition home or self-care (01) ==
LOC: DL.ED 12:39
DX: R33.9 Retention of urine, unspecified (principal); E78.00 Pure hypercholesterolemia, unspecified; I10 Essential (primary) hypertension; I25.2 Old myocardial infarction; Z88.8 Allergy status to other drugs, medicaments and biological substances; Z79.82 Long term (current) use of aspirin; Z79.899 Other long term (current) drug therapy
CPT/HCPCS: 51702; 51703; 81001; 99283

== ENCOUNTER 2019-01-06 19:47 | Emergency (ER) | payer MEDICARE, MEDICAID ==
[2019-01-06 19:54] VITALS: PULSE 85
[2019-01-06] MEDS ORDERED: cloNIDine 0.1 MG Tab PO ONE (19:54)
--- NOTE | 2019-01-06 19:58 | EDM.PDOC ---
ED HPI GENERAL MEDICAL PROBLEM - General Chief Complaint: Cardiovascular Problem Stated Complaint: HIGH BP [id number] Time Seen by Provider: 01/06/19 19:53 Source of Information: Reports: Patient History Limitations: Reports: No Limitations - History of Present Illness INITIAL COMMENTS - FREE TEXT/NARRATIVE: give 3 days h/o on-off left arm and fingers pain, states has shoulder problems and thought that was it. but not getting better and thinks could be his BP. right now has no pain. but feels hot and sweaty. - Related Data Allergies Allergy/AdvReac Type Severity Reaction Status Date / Time celecoxib Allergy Difficulty Verified 03/14/18 13:09 Swallowing Home Meds: Home Meds Acetaminophen [Tylenol Extra Strength] 1 tab PO Q6HR PRN 04/25/14 [History] Aspirin [Adult Low Dose Aspirin EC] 1 tab PO DAILY 04/25/14 [History] Isosorbide Mononitrate [Isosorbide Mononitrate ER] 1 tab PO DAILY 04/25/14 [ History] Metoprolol Succinate [Toprol XL 100mg] 50 mg PO DAILY 04/25/14 [History] Multivitamin [Multivitamins] 1 tab PO DAILY 04/25/14 [History] Nitroglycerin [Nitrostat] 0.4 mg SL ASDIRECTED PRN 04/25/14 [History] Rosuvastatin [Crestor] 1 tab PO BEDTIME 04/25/14 [History] Clopidogrel Bisulfate [Clopidogrel] 75 mg PO DAILY 12/05/14 [History] Esomeprazole Magnesium [Nexium] 40 mg PO DAILY 12/05/14 [History] Tamsulosin HCl [Flomax] 0.4 mg PO DAILY 04/14/16 [History] Ferrous Fumarate [Ferrocite] 324 mg PO BID 08/05/16 [History] Finasteride 5 mg PO DAILY 08/05/16 [History] Sennosides/Docusate Sodium [Senna-Docusate Sodium] 1 tab PO BID 08/05/16 [ History] Past Medical History HEENT History: Reports: Impaired Vision, Other (See Below) Other HEENT History: wear glasses Cardiovascular History: Reports: CAD, High Cholesterol, Hypertension, [place], Stents Respiratory History: Reports: None Gastrointestinal History: Reports: Diverticulosis, Other (See Below) Other Gastrointestinal History: AAA Genitourinary History: Reports: BPH Musculoskeletal History: Reports: None Neurological History: Reports: None Psychiatric History: Reports: None Endocrine/Metabolic History: Reports: None Hematologic History: Reports: None Immunologic History: Reports: None Oncologic (Cancer) History: Reports: None Dermatologic History: Reports: None - Infectious Disease History Infectious Disease History: Reports: Chicken Pox, Measles, Mumps - Past Surgical History Head Surgeries/Procedures: Reports: None Cardiovascular Surgical History: Reports: Coronary Artery Bypass, Coronary Artery Stent GI Surgical History: Reports: Hernia Repair/Other Other GI Surgeries/Procedures: last thursdayFebruary 2018 Musculoskeletal Surgical History: Reports: Hip Replacement Social & Family History - Family History Cardiac: Reports: CAD, Hypertension, Stent - Caffeine Use Caffeine Use: Reports: Coffee - Living Situation & Occupation Living situation: Reports: , with Spouse Occupation: Retired ED ROS GENERAL - Review of Systems Review Of Systems: ROS reveals no pertinent complaints other than HPI. ED EXAM, GENERAL - Physical Exam Exam: See Below Exam Limited By: No Limitations General Appearance: Alert, WD/WN, No Apparent Distress Ears: Hearing Grossly Normal Throat/Mouth: Normal Voice, No Airway Compromise Head: Atraumatic Neck: Non-Tender, Full Range of Motion Respiratory/Chest: No Respiratory Distress Cardiovascular: Regular Rate, Rhythm GI/Abdominal: Soft, Non-Tender Neurological: Alert, Oriented, Normal Cognition, Normal Gait, No Motor/Sensory Deficits Psychiatric: Normal Affect, Normal Mood Skin Exam: Warm, Dry, Normal Color Lymphatic: No Adenopathy Course - Vital Signs Last Recorded V/S: Last Vital Signs Temp 36.8 C 01/06/19 19:53 Pulse 85 01/06/19 19:53 Resp 20 01/06/19 19:53 BP 190/90 H 01/06/19 20:04 Pulse Ox 97 01/06/19 19:53 - Orders/Labs/Meds Orders: Active Orders 24 hr Category Date Time Status EKG 12 Lead [EKG Documentation Completion] [RC] STAT Care 01/06/19 19:54 Active Chest 1V Frontal [CR] Urgent Exams 01/06/19 20:42 Ordered Labs: Laboratory Tests 01/06/19 01/06/19 01/06/19 Range/Units 19:59 19:59 19:59 WBC 7.1 (5.0-10.0) 10^3/uL RBC 4.25 L (4.6-6.2) 10^6/uL Hgb 13.0 L (14.0-18.0) g/dL Hct 39.9 L (40.0-54.0) % MCV 93.9 (80-100) fL MCH 30.6 (27.0-34.0) pg MCHC 32.6 L (33.0-35.0) g/dL Plt Count 173 (150-450) 10^3/uL Neut % (Auto) 55.9 (42.2-75.2) % Lymph % (Auto) 31.9 (20.5-50.1) % [place] % (Auto) 9.0 H (2-8) % Eos % (Auto) 3.1 H (1.0-3.0) % Baso % (Auto) 0.1 (0.0-1.0) % Sodium 139 (135-145) mmol/L Potassium 4.1 (3.6-5.0) mmol/L Chloride 106 (101-111) mmol/L Carbon Dioxide 22.0 (21.0-31.0) mmol/L Anion Gap 15.1 BUN 25 H (7-18) mg/dL Creatinine 1.3 (0.6-1.3) mg/dL Est Cr Clr Drug Dosing 41.65 mL/min Estimated GFR (MDRD) 53 BUN/Creatinine Ratio 19.23 Glucose 98 (74-105) mg/dL Calcium 8.5 (8.4-10.2) mg/dl Total Bilirubin 0.7 (0.2-1.0) mg/dL AST 30 (10-42) IU/L ALT 24 (10-60) IU/L Alkaline Phosphatase 49 (42-121) IU/L Troponin I 0.05 H* (0.00-0.02) ng/ml Total Protein 7.7 (6.7-8.2) g/dl Albumin 4.0 (3.2-5.5) g/dl Globulin 3.7 Albumin/Globulin Ratio 1.08 Ethyl Alcohol < 5 mg/dL Meds: Medications Discontinued Medications Generic Name Dose Route Start Last Admin Trade Name Freq PRN Reason Stop Dose Admin Clonidine HCl 0.1 mg 01/06/19 19:54 01/06/19 20:04 Catapres PO 01/06/19 19:55 0.1 mg ONETIME ONE Administration - Re-Assessments/Exams Free Text/Narrative Re-Assessment/Exam: 01/06/19 20:[address] Bill @ who kindly accepted pt. Departure - Departure Time of Disposition: 20:48 Disposition: DC/Tfer to Acute Hospital 02 Reason for Transfer *Q: Other Condition: Fair Clinical Impression: NSTEMI (non-ST elevated myocardial infarction), Elevated troponin I level Forms: Interfacility Transfer EMTALA - My Orders Last 24 Hours: My Active Orders 01/06/19 19:54 EKG 12 Lead [EKG Documentation Completion] [RC] STAT 01/06/19 20:42 Chest 1V Frontal [CR] Urgent - Assessment/Plan Last 24 Hours: My Active Orders 01/06/19 19:54 EKG 12 Lead [EKG Documentation Completion] [RC] STAT 01/06/19 20:42 Chest 1V Frontal [CR] Urgent
[2019-01-06 20:05] VITALS: BP 190/90
[2019-01-06 20:28] LABS: ANION GAP 15.1
== END 2019-01-06 21:47 ==
LOC: DL.ED 19:47
DX: I21.4 Non-ST elevation (NSTEMI) myocardial infarction (principal); R79.89 Other specified abnormal findings of blood chemistry; I10 Essential (primary) hypertension; E78.00 Pure hypercholesterolemia, unspecified; I25.10 Atherosclerotic heart disease of native coronary artery without angina pectoris; Z79.899 Other long term (current) drug therapy; Z79.82 Long term (current) use of aspirin; Z88.1 Allergy status to other antibiotic agents
CPT/HCPCS: 36415; 71045; 80053; 84484; 85025; 93005; 99285; A9270; G0480; 99284

== ENCOUNTER 2019-11-09 08:14 | Day surgery (SDC) | payer MEDICARE, MEDICAID ==
[2019-11-09] MEDS ORDERED: Dexamethasone 4 MG/ML SDV IV ONE (08:15)
[2019-11-09] MEDS ORDERED: Sodium Chloride 0.9% 10 ML Syringe IV ONE (08:15)
[2019-11-09] MEDS ORDERED: Midazolam 1 MG/ML 2 ML SDV IV ONE (08:15)
[2019-11-09] MEDS ORDERED: Acetaminophen 325 MG Tab PO PRN (08:30)
[2019-11-09] MEDS ORDERED: Ondansetron 4 MG/2 ML SDV IVPUSH PRN (08:30)
[2019-11-09] MEDS: Sodium Chloride 0.9% 10 ML Syringe FLUSH PRN (08:41)
[2019-11-09] MEDS: Proparacaine 0.5% Ophth Soln 15 ML Bottle EYERT ONE (08:42)
[2019-11-09] MEDS: Povidone-Iodine 5% Sterile Ophth Soln 30 ML Bottle EYERT ONE ×2 (08:43→09:27)
[2019-11-09] MEDS: Moxifloxacin 0.5% Ophth Soln 3 ML Bottle EYERT ONE (08:44)
[2019-11-09] MEDS: Timolol Maleate 0.5% Ophth Soln 5 ML Bottle EYERT ONE (08:45)
[2019-11-09] MEDS: Phenylephrine 10% Ophth Soln 5 ML Bot EYERT ONE ×2 (08:45→09:27)
[2019-11-09] MEDS: Tropicamide 1% Ophth Soln 15 ML Bottle EYERT ONE (08:45)
[2019-11-09] MEDS: Cataract Ophth Solution EYERT ONE (08:47)
[2019-11-09] MEDS: Phenylephrine 10% Ophth Soln 5 ML Bot EYERT PRN (09:13)
[2019-11-09] MEDS: Tetracaine HCl/PF 0.5% 4 ML Bottle EYERT ONE (09:26)
[2019-11-09] MEDS: Apraclonidine 0.5% Ophth Soln 5 ML Bot EYERT ONE (09:27)
[2019-11-09] MEDS: Lidocaine 1% 30 ML SDV ONE (09:27)
[2019-11-09] MEDS: Diclofenac Sodium 0.1% Ophth Soln 5 ML Bottle EYERT ONE (09:27)
[2019-11-09] MEDS: Balanced Salt Solution Ophth Irrig 500 ML Bottle IOCULAR ONE (09:28)
[2019-11-09] MEDS: Vancomycin 500 MG SDV EYERT ONE (09:28)
[2019-11-09] MEDS: Chondroitin Sulfate/Hyaluronate Sodium Ophth Inj 0.75 ML Syringe EYERT ONE (09:28)
[2019-11-09 14:48] VITALS: BP 146/74; PULSE 63
--- NOTE | 2019-11-10 14:12 | OR ---
DATE: 11/09/2019 PREOPERATIVE DIAGNOSIS: Complex cataract, right eye with small pupil/Malyugin ring. POSTOPERATIVE DIAGNOSIS: Complex cataract, right eye with small pupil/Malyugin ring. PROCEDURE PERFORMED: Complex cataract, right eye with small pupil/Malyugin ring with intraocular lens implant, right eye. ANESTHESIA: Topical/local MAC. COMPLICATIONS: None. INDICATION: Mr. Jessica was seen in the clinic. His examination revealed visually significant cataract. I explained options. I offered cataract surgery and I explained risks, including, but not limited to, infection, retinal detachment, loss of vision, need for additional surgery, amongst others. We discussed implant options. He has requested a monofocal implant. 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 He has voiced understanding with respect to risks and limitations. He requested cataract surgery. DESCRIPTION OF PROCEDURE: After informed consent was obtained and the risks, benefits, and alternatives were explained, the patient was brought to the operative suite and topical anesthesia was administered. The patient was then prepped and draped in the usual sterile fashion and attention was placed on the right eye. A sterile lid speculum was placed into the right eye to allow operative exposure. A full-thickness paracentesis was made in the temporal portion of the operative eye. Preservative-free lidocaine 0.1 mL was injected into the anterior chamber followed by viscoelastic. A full-thickness corneal incision was then made into the anterior chamber. A bent needle cystotome was used to create a small gina in the anterior capsule. The capsulorrhexis forceps was then used to create a 360-degree curvilinear capsulorrhexis. The nucleus was then removed using a phacoemulsification handpiece and the remaining cortical material was then removed with the irrigation and aspiration handpiece. Following removal of the cortical material, the capsular bag was then inspected and noted to be free of any holes or tears. Viscoelastic was then injected into the capsular bag and the intraocular lens was inserted into the capsular bag. The viscoelastic material was then removed from both the anterior and posterior chambers and from behind the IOL. The lens and capsular bag were then reinspected. The IOL was well centered and the capsular bag intact. The wound and paracentesis sites were inspected and hydrated with balanced saline solution. Both were found to be self-sealing. The intraocular pressure was assessed digitally and found to be within normal range. A good red reflex was noted at the completion of the procedure. No complications occurred during the operation. At the completion of the procedure, Maxitrol, Voltaren, and Iopidine drops were placed into the operative eye. A sterile eye shield was placed over the operative eye and the patient was transported to the postoperative recovery area having tolerated the procedure well. Postoperative instructions were given along with a postoperative appointment. The patient was advised to call with any questions or concerns. [facility] /[id number]
== END 2019-11-09 10:40 | disposition home or self-care (01) ==
LOC: DL.SDS 08:14
PROVIDERS: ATTEND Ophthalmology
DX: H26.9 Unspecified cataract (principal); I25.10 Atherosclerotic heart disease of native coronary artery without angina pectoris; I12.9 Hypertensive chronic kidney disease with stage 1 through stage 4 chronic kidney disease, or unspecified chronic kidney disease; N18.9 Chronic kidney disease, unspecified; I25.2 Old myocardial infarction; Z79.02 Long term (current) use of antithrombotics/antiplatelets; Z79.899 Other long term (current) drug therapy; Z87.891 Personal history of nicotine dependence
CPT/HCPCS: 00142; J1100; J2001; J2250; J3370; V2632

== ENCOUNTER 2020-02-08 07:22 | Day surgery (SDC) | payer MEDICARE, MEDICAID ==
[2020-02-08] MEDS ORDERED: Dexamethasone 4 MG/ML SDV IV ONE (07:23)
[2020-02-08] MEDS ORDERED: Midazolam 1 MG/ML 2 ML SDV IV ONE (07:23)
[2020-02-08] MEDS ORDERED: Sodium Chloride 0.9% 10 ML Syringe IV ONE (07:23)
[2020-02-08] MEDS ORDERED: Proparacaine 0.5% Ophth Soln 15 ML Bottle EYELF ONE (07:30)
[2020-02-08] MEDS ORDERED: Sodium Chloride 0.9% 10 ML Syringe FLUSH PRN (07:30)
[2020-02-08] MEDS ORDERED: Ondansetron 4 MG/2 ML SDV IVPUSH PRN (07:30)
[2020-02-08] MEDS ORDERED: Povidone-Iodine 5% Sterile Ophth Soln 30 ML Bottle EYELF ONE ×2 (07:30→08:44)
[2020-02-08] MEDS ORDERED: Moxifloxacin 0.5% Ophth Soln 3 ML Bottle EYELF ONE (07:30)
[2020-02-08] MEDS ORDERED: Acetaminophen 325 MG Tab PO PRN (07:30)
[2020-02-08] MEDS ORDERED: Timolol Maleate 0.5% Ophth Soln 5 ML Bottle EYELF SCH (07:30)
[2020-02-08] MEDS ORDERED: Cataract Ophth Solution EYELF ONE (07:30)
[2020-02-08] MEDS ORDERED: Tropicamide 1% Ophth Soln 15 ML Bottle EYELF ONE (07:30)
[2020-02-08] MEDS: Phenylephrine 10% Ophth Soln 5 ML Bot EYELF ONE ×2 (07:50→08:15)
[2020-02-08] MEDS ORDERED: Lidocaine 1% 30 ML SDV ONE (08:43)
[2020-02-08] MEDS ORDERED: Apraclonidine 0.5% Ophth Soln 5 ML Bot EYELF ONE (08:44)
[2020-02-08] MEDS ORDERED: Diclofenac Sodium 0.1% Ophth Soln 5 ML Bottle EYELF ONE (08:44)
[2020-02-08] MEDS ORDERED: Tetracaine HCl/PF 0.5% 4 ML Bottle EYELF ONE (08:44)
[2020-02-08] MEDS ORDERED: Dexamethasone/Neomycin/Polymyxin B Ophth Oint 3.5 GM Tube EYELF ONE (08:45)
[2020-02-08] MEDS ORDERED: Vancomycin 500 MG SDV EYELF ONE (08:45)
[2020-02-08] MEDS ORDERED: Balanced Salt Solution Ophth Irrig 500 ML Bottle IOCULAR ONE (08:45)
[2020-02-08] MEDS ORDERED: Chondroitin Sulfate/Hyaluronate Sodium Ophth Inj 0.75 ML Syringe EYELF ONE (08:45)
[2020-02-08 13:10] VITALS: BP 131/70; PULSE 67
--- NOTE | 2020-02-09 08:46 | OR ---
DATE: 02/08/2020 PREOPERATIVE DIAGNOSIS: Visually significant mixed cataract, left eye. POSTOPERATIVE DIAGNOSIS: Visually significant mixed cataract, left eye. PROCEDURE: Complex cataract, left eye, with small pupil/Malyugin ring. ANESTHESIA: Topical/local MAC. COMPLICATIONS: None. INDICATION: Mr. Jessica was seen in the clinic. He has complained of a slow progressive decrease in vision. His examination revealed visually significant mixed cataract. I explained options, I offered cataract surgery, and I explained risks including, but not limited to, infection, retinal detachment, loss of vision, need for additional surgery amongst others. We discussed implant options. He has requested a monofocal implant. He is comfortable wearing spectacle correction following surgery if necessary. OPERATIVE DESCRIPTION: After informed consent was obtained and the risks, benefits, and alternatives were explained, the patient was brought to the operative suite and topical anesthesia was administered. The patient was then prepped and draped in the sterile fashion and attention was placed on the left eye. A sterile lid speculum was placed into the left eye to allow operative exposure. A full-thickness paracentesis was made in the temporal portion of the operative eye. Preservative-free lidocaine 0.1 mL was injected into the anterior chamber followed by viscoelastic. A full-thickness corneal incision was then made into the anterior chamber. A bent needle cystotome was used to create a small gina in the anterior capsule. The capsulorrhexis forceps was then used to create a 360-degree curvilinear capsulorrhexis. The nucleus was then removed using a phacoemulsification handpiece and the remaining cortical material was then removed with irrigation and aspiration handpiece. Following removal of the cortical material, the capsular bag was then inspected and noted to be free of any holes or tears. Viscoelastic was then injected into the capsular bag and the intraocular lens was inserted into the capsular bag. The viscoelastic material was then removed from both the anterior and posterior chambers and from behind the IOL. The lens and capsular bag were then reinspected. The IOL was well centered and the capsular bag intact. The wound and paracentesis sites were inspected and hydrated with balanced saline solution. Both were found to be self- sealing. The intraocular pressure was assessed digitally and found to be within normal range. A good red reflex was noted at the completion of the procedure. No complications occurred during the operation. At the completion of the procedure, Maxitrol, Voltaren, and Iopidine drops were placed into the operative eye. A sterile eye shield was placed over the operative eye and the patient was transported to the postoperative recovery area having tolerated the procedure well. Postoperative instructions were given along with a postoperative appointment. The patient was advised to call with any questions or concerns. [facility] /[id number]
== END 2020-02-08 10:08 | disposition home or self-care (01) ==
LOC: DL.SDS 07:22
PROVIDERS: ATTEND Ophthalmology
DX: H25.812 Combined forms of age-related cataract, left eye (principal); K21.9 Gastro-esophageal reflux disease without esophagitis; I25.10 Atherosclerotic heart disease of native coronary artery without angina pectoris; M19.90 Unspecified osteoarthritis, unspecified site; I99.8 Other disorder of circulatory system; I12.9 Hypertensive chronic kidney disease with stage 1 through stage 4 chronic kidney disease, or unspecified chronic kidney disease; N40.0 Benign prostatic hyperplasia without lower urinary tract symptoms; N18.9 Chronic kidney disease, unspecified; D63.1 Anemia in chronic kidney disease; Z95.1 Presence of aortocoronary bypass graft; Z88.8 Allergy status to other drugs, medicaments and biological substances; Z79.899 Other long term (current) drug therapy
CPT/HCPCS: 00142; 66982; A9270; J1100; J2001; J2250; J3370; V2632

== ENCOUNTER 2021-04-06 07:20 | Emergency (ER) | payer MEDICARE, OTHER, MEDICAID ==
--- NOTE | 2021-04-06 08:32 | EDM.PDOC ---
ED HPI GENERAL MEDICAL PROBLEM - General Chief Complaint: Neurological Problem Stated Complaint: [id number] LIGHT HEADED Time Seen by Provider: 04/06/21 08:20 Source of Information: Reports: Patient History Limitations: Reports: No Limitations - History of Present Illness INITIAL COMMENTS - FREE TEXT/NARRATIVE: This 86 yo male patient reports to the ED due to feeling dizzy and lightheaded. The patient reports his symptoms started this morning. The patient reports he has been busy working on his house in the heat. The patient reports he has not been eating too well (recently ). The patient reports he did have a hot dog today and also had a normal meal last night. The patient reports he did drink 6-8 beers yesterday (which is normal for him) and had about 3 bottles of water. The patient is on iron due to low hemoglobin. The patient denies any recent falls or trauma. Onset: Today Duration: Constant Location: Reports: Generalized Quality: Reports: Other Severity: Moderate Improves with: Reports: None Worsens with: Reports: None Context: Reports: Other Associated Symptoms: Reports: No Other Symptoms - Related Data Allergies Allergy/AdvReac Type Severity Reaction Status Date / Time celecoxib Allergy Difficulty Verified 04/06/21 07:36 Swallowing Home Meds: Home Meds Acetaminophen [Tylenol Extra Strength] 1 tab PO Q6HR PRN 04/25/14 [History] Aspirin [Adult Low Dose Aspirin EC] 81 mg PO DAILY 04/25/14 [History] Isosorbide Mononitrate [Isosorbide Mononitrate ER] 30 mg PO DAILY 04/25/14 [History] Metoprolol Succinate [Toprol XL 100mg] 50 mg PO DAILY 04/25/14 [History] Multivitamin [Multivitamins] 1 tab PO DAILY 04/25/14 [History] Nitroglycerin [Nitrostat] 0.4 mg SL ASDIRECTED PRN 04/25/14 [History] Rosuvastatin [Crestor] 40 mg PO BEDTIME 04/25/14 [History] Clopidogrel Bisulfate [Clopidogrel] 75 mg PO DAILY 12/05/14 [History] Esomeprazole Magnesium [Nexium] 40 mg PO DAILY 12/05/14 [History] Tamsulosin HCl [Flomax] 0.4 mg PO DAILY 04/14/16 [History] Ferrous Fumarate [Ferrocite] 324 mg PO BID 08/05/16 [History] Finasteride 5 mg PO DAILY 08/05/16 [History] Sennosides/Docusate Sodium [Senna-Docusate Sodium] 1 tab PO BID 08/05/16 [History] Dexamethasone/Tobramycin [Tobradex Ophth Oint] 1 drop EYERT ASDIRECTED 11/08/19 [History] Fluorometholone 1 drop EYEBOTH ASDIRECTED 11/08/19 [History] prednisoLONE acetate [Pred Forte 1% Ophth Susp] 1 drop EYERT ASDIRECTED 11/08/19 [History] Past Medical History HEENT History: Reports: Cataract, Impaired Vision, Other (See Below) Other HEENT History: wear glasses Cardiovascular History: Reports: CAD, High Cholesterol, Hypertension, [place], Stents, Syncope, Other (See Below) Other Cardiovascular History: 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 HX OF SYNCOPE AND COLLAPSE Respiratory History: Reports: None Gastrointestinal History: Reports: Diverticulosis, GERD, GI Bleed, Other (See Below) Other Gastrointestinal History: AAA. ABNORMAL LIVER FUNCTION TEST. peptic esophageal stricture. gastric polyp Genitourinary History: Reports: BPH, Prostate Disorder, Renal Calculus Musculoskeletal History: Reports: Arthritis, Gout, Osteoarthritis Neurological History: Reports: None Psychiatric History: Reports: None Endocrine/Metabolic History: Reports: None Hematologic History: Reports: Anemia Immunologic History: Reports: None Oncologic (Cancer) History: Reports: None Dermatologic History: Reports: None - Infectious Disease History Infectious Disease History: Reports: Chicken Pox, Measles, Mumps - Past Surgical History Head Surgeries/Procedures: Reports: None HEENT Surgical History: Reports: None, Cataract Surgery Cardiovascular Surgical History: Reports: Coronary Artery Bypass, Coronary Artery Stent GI Surgical History: Reports: Appendectomy, Colonoscopy, EGD, Hernia Repair/Other Other GI Surgeries/Procedures: last thursdayFebruary 2018 Male Surgical History: Reports: Cystectomy Musculoskeletal Surgical History: Reports: Carpal Tunnel, Hip Replacement Social & Family History - Family History Family Medical History: No Pertinent Family History Cardiac: Reports: CAD, Hypertension, Stent - Tobacco Use Tobacco Use Status *Q: Never Tobacco User Second Hand Smoke Exposure: No - Caffeine Use Caffeine Use: Reports: Coffee Caffeine Use Comment: 5 cups daily - Recreational Drug Use Recreational Drug Use: No - Living Situation & Occupation Living situation: Reports: , with Spouse Occupation: Retired ED ROS GENERAL - Review of Systems Review Of Systems: Comprehensive ROS is negative, except as noted in HPI. ED EXAM, GENERAL - Physical Exam Exam: See Below Exam Limited By: No Limitations General Appearance: Alert, WD/WN, Mild Distress Eye Exam: Bilateral Eye: EOMI, Normal Inspection, PERRL Ears: Normal External Exam, Normal Canal, Hearing Grossly Normal, Normal TMs Nose: Normal Inspection, Normal Mucosa, No Blood Throat/Mouth: Normal Inspection, Normal Lips, Normal Teeth, Normal Gums, Normal Oropharynx, Normal Voice, No Airway Compromise Head: Atraumatic, Normocephalic Neck: Normal Inspection, Supple, Non-Tender, Full Range of Motion Respiratory/Chest: No Respiratory Distress, Lungs Clear, Normal Breath Sounds, No Accessory Muscle Use, Chest Non-Tender Cardiovascular: Normal Peripheral Pulses, Regular Rate, Rhythm, No Edema, No Gallop, No JVD, No Murmur, No Rub GI/Abdominal: Normal Bowel Sounds, Soft, Non-Tender, No Organomegaly, No Distention, No Abnormal Bruit, No Mass (Male) Exam: Deferred Rectal (Males) Exam: Deferred Back Exam: Normal Inspection, Full Range of Motion, NT Extremities: Normal Inspection, Normal Range of Motion, Non-Tender, Normal Capillary Refill, No Pedal Edema Neurological: Alert, Oriented, CN II-XII Intact, Normal Cognition, Normal Gait, Normal Reflexes, No Motor/Sensory Deficits Psychiatric: Normal Affect, Normal Mood Skin Exam: Warm, Dry, Intact, Normal Color, No Rash Lymphatic: No Adenopathy #1 Interpretation EKG Date: 04/06/21 Time: 08:16 Rhythm: NSR Rate (Beats/Min): 67 [place]: Normal P-Wave: Present QRS: Normal ST-T: Normal QT: Normal Comparison: No Change EKG Interpretation Comments: With a PAC Course - Vital Signs Last Recorded V/S: Last Vital Signs Temp 97.8 F 04/06/21 07:32 Pulse 78 04/06/21 07:32 Resp 16 04/06/21 07:32 BP 147/64 H 04/06/21 07:45 Pulse Ox 100 04/06/21 07:32 Orthostatic Blood Pressure [ 154/69 Standing] Orthostatic Blood Pressure [ 153/71 Sitting] Orthostatic Blood Pressure [ 147/60 Supine] - Orders/Labs/Meds Orders: Active Orders 24 hr Category Date Time Status EKG Documentation Completion [RC] STAT Care 04/06/21 07:55 Active UA RFX MADELYN AND CULT IF INDIC [URIN] Urgent Lab 04/06/21 07:55 Ordered Labs: Laboratory Tests 04/06/21 04/06/21 04/06/21 Range/Units 08:09 08:09 08:09 WBC 5.4 (5.0-10.0) 10^3/uL RBC 3.68 L (4.6-6.2) 10^6/uL Hgb 11.5 L D (14.0-18.0) g/dL Hct 34.5 L (40.0-54.0) % MCV 93.8 (80-100) fL MCH 31.3 (27.0-34.0) pg MCHC 33.3 (33.0-35.0) g/dL Plt Count 197 (150-450) 10^3/uL Neut % (Auto) 57.5 (42.2-75.2) % Lymph % (Auto) 26.9 (20.5-50.1) % [place] % (Auto) 9.8 H (2-8) % Eos % (Auto) 5.4 H (1.0-3.0) % Baso % (Auto) 0.4 (0.0-1.0) % PT 10.3 (9.0-12.0) SEC INR 1.0 (0.9-1.2) Sodium 138 (136-145) mmol/L Potassium 4.7 (3.5-5.1) mmol/L Chloride 99 (98-107) mmol/L Carbon Dioxide 26 (21-32) mmol/L Anion Gap 17.7 H (7-13) mEq/L BUN 30 H (7-18) mg/dL Creatinine 1.61 H (0.70-1.30) mg/dL Est Cr Clr Drug Dosing 30.79 mL/min Estimated GFR (MDRD) 41 BUN/Creatinine Ratio 18.6 (No establ ref range) Glucose 104 H (70-99) mg/dL Calcium 8.7 (8.5-10.1) mg/dL Total Bilirubin 0.6 (0.2-1.0) mg/dL AST 36 (15-37) U/L ALT 39 (16-63) U/L Alkaline Phosphatase 66 (46-116) U/L Troponin I High Sens 47 (<=76) pg/mL Total Protein 7.1 (6.4-8.2) g/dL Albumin 3.6 (3.4-5.0) g/dL Globulin 3.5 Albumin/Globulin Ratio 1.0 Meds: Medications Discontinued Medications Generic Name Dose Route Start Last Admin Trade Name Eun PRN Reason Stop Dose Admin Sodium Chloride 1,000 mls @ 999 mls/hr 04/06/21 09:08 04/06/21 09:28 Normal Saline IV 04/06/21 10:08 999 mls/hr .BOLUS ONE Administration Departure - Departure Time of Disposition: 10:14 Disposition: Home, Self-Care 01 Condition: Fair Clinical Impression: Dehydration - Discharge Information *PRESCRIPTION DRUG MONITORING PROGRAM REVIEWED*: Not Applicable *COPY OF PRESCRIPTION DRUG MONITORING REPORT IN PATIENT GUZMAN: Not Applicable Instructions: Dehydration, Elderly, [id number] Forms: ED Department Discharge Care Plan Goals: The patient was advised of the examination, lab and EKG results during the visit. The patient was encouraged to increase his oral fluid intake. If the patient has any additional symptoms or concerns, the patient should either return to the emergency department or visit his primary care facility. Sepsis Event Note (ED) - Evaluation Sepsis Screening Result: No Definite Risk - Focused Exam Vital Signs: Vital Signs Temp Pulse Resp BP Pulse Ox 04/06/21 07:45 147/64 H 04/06/21 07:32 97.8 F 78 16 161/92 H 100 - My Orders Last 24 Hours: My Active Orders 04/06/21 07:55 EKG Documentation Completion [RC] STAT UA RFX MADELYN AND CULT IF INDIC [URIN] Urgent - Assessment/Plan Last 24 Hours: My Active Orders 04/06/21 07:55 EKG Documentation Completion [RC] STAT UA RFX MADELYN AND CULT IF INDIC [URIN] Urgent
[2021-04-06 08:35] LABS: ANION GAP 17.7 mEq/L (7-13)
[2021-04-06] MEDS ORDERED: Sodium Chloride 0.9% 1,000 ML IV ONE (09:08)
[2021-04-06 10:15] VITALS: BP 171/78; PULSE 72
== END 2021-04-06 10:25 | disposition home or self-care (01) ==
LOC: DL.ED 07:20
DX: E86.0 Dehydration (principal); I25.10 Atherosclerotic heart disease of native coronary artery without angina pectoris; E78.00 Pure hypercholesterolemia, unspecified; I10 Essential (primary) hypertension; I25.2 Old myocardial infarction; K21.9 Gastro-esophageal reflux disease without esophagitis; N40.0 Benign prostatic hyperplasia without lower urinary tract symptoms; M10.9 Gout, unspecified; I49.1 Atrial premature depolarization; Z88.6 Allergy status to analgesic agent; Z79.82 Long term (current) use of aspirin; Z79.02 Long term (current) use of antithrombotics/antiplatelets; Z79.899 Other long term (current) drug therapy
CPT/HCPCS: 36415; 80053; 84484; 85025; 85610; 93005; 93010; 99284; J7030